=== PATIENT | female | born 1980 | race Caucasian/White ===

== ENCOUNTER → 2016-12-01 | Outpatient (CLI) | payer BC | LOC: US 09:12 | PROVIDERS: ATTEND Nurse Practitioner Family | DX: R00.2 Palpitations (principal); R42 Dizziness and giddiness | CPT/HCPCS: 93306 ==

== ENCOUNTER → 2017-02-05 | Outpatient (CLI) | payer BC | LOC: MOB LAB 15:32 | PROVIDERS: ATTEND Nurse Practitioner Family | DX: N89.8 Other specified noninflammatory disorders of vagina (principal) | CPT/HCPCS: 87480; 87510; 87660 ==